=== PATIENT | female | born 1980 | race Caucasian/White ===

== ENCOUNTER 2018-11-26 05:19 | Inpatient (IN) ==
--- NOTE | 2018-11-24 16:08 | PAT Medication Instructions ---
Medication Instructions Date of Service November 24, 2018 Home Medications PNV cmb#95-ferrous fumarate-FA [] 1 tab PO HS acetaminophen-caffeine [Excedrin Tension Headache] 1 tab PO Q6H PRN cetirizine 10 mg PO DAILY PRN dicyclomine 10 mg PO Q6H PRN duloxetine 20 mg PO HS meclizine 25 mg PO TID PRN omega 0-ikf-roo-fish oil [Fish Oil] 1 cap PO HS omeprazole 20 mg PO QAM ondansetron HCl [Zofran] 4 mg PO Q6H PRN sennosides-docusate sodium [Stool Softener-Laxative] 2 tab PO HS simethicone 125 mg PO BID PRN sucralfate 1 g PO BID ASK your surgeon for instructions acetaminophen-caffeine [Excedrin Tension Headache] 1 tab PO Q6H PRN STOP taking 2 weeks before surgery (or as soon as possible if surgery is within 2 weeks) omega 9-oqh-xsz-fish oil [Fish Oil] 1 cap PO HS DO NOT take the morning of surgery cetirizine 10 mg PO DAILY PRN dicyclomine 10 mg PO Q6H PRN simethicone 125 mg PO BID PRN sucralfate 1 g PO BID Take morning of surgery With a small sip of water, OTHERWISE NOTHING TO EAT OR DRINK AFTER MIDNIGHT: meclizine 25 mg PO TID PRN (if needed) omeprazole 20 mg PO QAM ondansetron HCl [Zofran] 4 mg PO Q6H PRN (if needed) Take evening before surgery PNV cmb#95-ferrous fumarate-FA [] 1 tab PO HS cetirizine 10 mg PO DAILY PRN (if needed) dicyclomine 10 mg PO Q6H PRN (if needed) duloxetine 20 mg PO HS meclizine 25 mg PO TID PRN (if needed) ondansetron HCl [Zofran] 4 mg PO Q6H PRN (if needed) sennosides-docusate sodium [Stool Softener-Laxative] 2 tab PO HS simethicone 125 mg PO BID PRN (if needed) sucralfate 1 g PO BID Other Notes If you have any questions please call us at [phone] or [phone] or [phone] or [phone]
--- NOTE | 2018-11-25 11:13 | Anesthesiology Consultation ---
Date of Service November 25, 2018 Assessment & Plan (1) Encounter for pre-operative examination: Chart Review Chart Review: Acceptable Risk for Surgery and Patient seen in Pre Admission Testing Consults Requested none History Surgery Operation Date: 11/26/18 07:30 Proposed Procedures p Section with Bilateral Tubal Ligation - Kimberley Gutierrez DO Height/Weight Height: 5 ft 7 in Weight: 91.8 kg Allergies Allergy/AdvReac Type Severity Reaction Status Date / Time sumatriptan [From Imitrex] Allergy Intermediate INCREASED Verified 11/25/18 09:12 MIGRAINE zolmitriptan Allergy Intermediate INCREASED Verified 11/25/18 09:12 MIGRAINE Medications Home Medications Medication Instructions Recorded Confirmed Last Taken PNV cmb#95-ferrous fumarate-FA 1 tab PO HS 11/22/18 11/25/18 Unknown [] acetaminophen-caffeine [Excedrin 1 tab PO Q6H PRN 11/22/18 11/25/18 Unknown Tension Headache] cetirizine 10 mg PO DAILY PRN 11/22/18 11/25/18 Unknown dicyclomine 10 mg PO Q6H PRN 11/22/18 11/25/18 Unknown duloxetine 20 mg PO HS 11/22/18 11/25/18 Unknown meclizine 25 mg PO TID PRN 11/22/18 11/25/18 Unknown omega 9-mgi-obh-fish oil [Fish Oil] 1 cap PO HS 11/22/18 11/25/18 Unknown omeprazole 20 mg PO QAM 11/22/18 11/25/18 Unknown ondansetron HCl [Zofran] 4 mg PO Q6H PRN 11/22/18 11/25/18 Unknown sennosides-docusate sodium [Stool 2 tab PO HS 11/22/18 11/25/18 Unknown Softener-Laxative] simethicone 125 mg PO BID PRN 11/22/18 11/25/18 Unknown sucralfate 1 g PO BID 11/22/18 11/25/18 Unknown Past Medical History Medical History Anxiety with depression Biliary dyskinesia GERD (gastroesophageal reflux disease) History of spontaneous History of vertigo IBS (irritable bowel syndrome) WITH DIARRHEA/CONSTIPATION Migraine Pinched nerve LOWER Spondylosis CERVICAL SPINE Temporomandibular joint disorder Past Family History Family History Mother Depression Atrial fibrillation Hypertension Dyslipidemia Grandmother (Maternal) Stroke Grandmother (Paternal) Atrial fibrillation Father Hypertension Renal failure FH: CABG (coronary artery bypass surgery) Dyslipidemia Grandfather (Paternal) Hypertension Prostate cancer FH: CABG (coronary artery bypass surgery) Dyslipidemia Sister Thyroid disease Other Myocardial infarction Past Surgical History Surgical History History of anesthesia reaction COUGHING/CHOKING AFTER EMBRYO RETRIEVAL AND WAS TOLD "METABOLISE ANESTHESIA QUICKLY" WITH LAST (USED EPIDURAL LINE) History of esophagogastroduodenoscopy (EGD) History of surgery EMBRYO RETRIEVAL S/P section X 1 S/P cholecystectomy S/P wisdom tooth extraction Social History Smoking Status: Former smoker tobacco type: cigarettes Do You Dip or Chew Tobacco: No Smoking End Date: 2009 Hx Alcohol Use: No Hx Substance Use: No substance use type: does not use Physical Exam Vital Signs Last Vital Signs Temp 36.7 C 11/25/18 10:46 Pulse 98 H 11/25/18 10:46 Resp 18 11/25/18 10:46 BP 111/69 11/25/18 10:46 Pulse Ox 97 11/25/18 10:46
--- NOTE | 2018-11-25 17:27 | History & Physical Report ---
Date of Service November 25, 2018 Assessment & Plan (1) : Plan for repeat section with bilateral tubal ligation with Filshie clips and possible right ovarian cystectomy. We have reviewed informed consent, risks benefits and alternatives to surgery. Including risk of bleeding , scarring, infection, damage to surrounding tissue including bowel, bladder, uterus, ovaries, fallopian tubes, blood supply. We discussed risk of delayed diagnosis of an injury. Discussed risk of after tubal ligation of 2-3 per thousand. Discussed that we will try to remove as much of the ovarian cyst as possible, understanding that vascular supply during is increased to the pelvic organs and will want to avoid bleeding as much as possible. She is agreeable to proceed. History of Present Illness Chief Complaint: repeat section Primary Care Provider: Kristen Hameed, DO 38yo @ 37 05/30 with h/o section x 1, desire for repeat. Also desire for tubal sterilization. Has right ovarian cyst, desires cystectomy if possible. complicated by advanced maternal age, history of se ction x1, ovarian cyst, resulting from IVF. Allergies Allergy/AdvReac Type Severity Reaction Status Date / Time sumatriptan [From Imitrex] Allergy Intermediate INCREASED Verified 11/25/18 09:12 MIGRAINE zolmitriptan Allergy Intermediate INCREASED Verified 11/25/18 09:12 MIGRAINE Home Medications Home Medications Medication Instructions Recorded Confirmed Type PNV cmb#95-ferrous fumarate-FA 1 tab PO HS 11/22/18 11/25/18 History [] acetaminophen-caffeine [Excedrin 1 tab PO Q6H PRN 11/22/18 11/25/18 History Tension Headache] cetirizine 10 mg PO DAILY PRN 11/22/18 11/25/18 History dicyclomine 10 mg PO Q6H PRN 11/22/18 11/25/18 History duloxetine 20 mg PO HS 11/22/18 11/25/18 History meclizine 25 mg PO TID PRN 11/22/18 11/25/18 History omega 3-dsg-pbq-fish oil [Fish Oil] 1 cap PO HS 11/22/18 11/25/18 History omeprazole 20 mg PO QAM 11/22/18 11/25/18 History ondansetron HCl [Zofran] 4 mg PO Q6H PRN 11/22/18 11/25/18 History sennosides-docusate sodium [Stool 2 tab PO HS 11/22/18 11/25/18 History Softener-Laxative] simethicone 125 mg PO BID PRN 11/22/18 11/25/18 History sucralfate 1 g PO BID 11/22/18 11/25/18 History Patient History Medical History Anxiety with depression Biliary dyskinesia GERD (gastroesophageal reflux disease) History of spontaneous History of vertigo IBS (irritable bowel syndrome) WITH DIARRHEA/CONSTIPATION Migraine Pinched nerve LOWER Spondylosis CERVICAL SPINE Temporomandibular joint disorder Surgical History History of anesthesia reaction COUGHING/CHOKING AFTER EMBRYO RETRIEVAL AND WAS TOLD "METABOLISE ANESTHESIA QUICKLY" WITH LAST (USED EPIDURAL LINE) History of esophagogastroduodenoscopy (EGD) History of surgery EMBRYO RETRIEVAL S/P section X 1 S/P cholecystectomy S/P wisdom tooth extraction Family History Mother Depression Atrial fibrillation Hypertension Dyslipidemia Grandmother (Maternal) Stroke Grandmother (Paternal) Atrial fibrillation Father Hypertension Renal failure FH: CABG (coronary artery bypass surgery) Dyslipidemia Grandfather (Paternal) Hypertension Prostate cancer FH: CABG (coronary artery bypass surgery) Dyslipidemia Sister Thyroid disease Other Myocardial infarction Social History Preferred Language: Tristanian Communication Ability: Effective Hand Loom Weaver Required: No Beliefs That Will Affect Care: None marital status: Current Living Situation: Family Other Information That Helps Us Care for You: No Feels Safe at Home: Yes Safety Concerns: Feels Safe At This Time Smoking Status: Former smoker Tobacco Type: cigarettes ; Do You Dip or Chew Tobacco: No ; Smoking End Date: 2009 ; Second Hand Exposure: Yes (RARE EXPOSURE) ; Tobacco Cessation Education Requested by Patient: No Hx Alcohol Use: No Hx Substance Use: No Review of Systems All systems reviewed & are unremarkable except as noted in HPI & below Physical Exam Constitutional: WD/WN, vitals as above Respiratory: normal respiratory effort, lungs clear to auscultation no respiratory distress Cardiovascular: Rate/Rhythm: regular rate and regular rhythm Gastrointestinal (Abdomen): Inspection/Auscultation: abdomen normal to inspection Percussion/Palpation: abdomen soft; abdomen nontender Gravid. No s/s chorio or abruption. Skin: no rashes, warm and dry Psychiatric: A+Ox3, euthymic affect Results & Data Vital Signs (Past 12 Hours) Vital Signs Temp Pulse Resp BP Pulse Ox 11/25/18 10:46 36.7 C 98 H 18 111/69 97
[2018-11-26] MEDS ORDERED: LACTATED RINGER'S 1,000 ML IV SCH ×2 (05:30→06:23)
[2018-11-26 05:50] LABS: Basophils # (auto) 0.09 K/uL (0-0.2); Basophils % (auto) 0.9 %; Eosinophils # (auto) 0.27 K/uL (0-0.5); Eosinophils % (auto) 2.6 %; Hematocrit (blood only) 37.1 % (37-47); Hemoglobin 12.8 g/dL (12.0-16.0); Immature Granulocytes # (auto) 0.37 K/uL (0.00-0.02); Immature Granulocytes % (auto) 3.5 %; Lymphocytes # (auto) 2.93 K/uL (1.2-3.4); Lymphocytes % (auto) 28.1 %; Mean Corpuscular Hemoglobin 32.4 pg (25-34); Mean Corpuscular Hgb Conc 34.5 g/dL (32-36); Mean Corpuscular Volume 93.9 fL (80-100); Monocytes # (auto) 0.91 K/uL (0.11-0.59); Monocytes % (auto) 8.7 %; Neutrophils # (auto) 5.87 K/uL (1.4-6.5); Neutrophils % (auto) 56.2 %; Platelet Count 272 K/uL (130-400); Red Blood Count 3.95 M/uL (4.2-5.4); White Blood Count 10.44 K/uL (4.8-10.8)
[2018-11-26] MEDS ORDERED: CITRIC ACID/SODIUM CITRATE 15 ML UDC PO SCH (06:00)
[2018-11-26] MEDS ORDERED: CEFAZOLIN 2000MG 2,000 MG/15 ML SYR IV SCH (06:00)
--- NOTE | 2018-11-26 07:22 | History & Physical Bridge Note ---
Date of Service November 26, 2018 History & Physical Bridge Note I have examined the patient, reviewed the History & Physical and in the interval since the performance of the History & Physical I have noted the following changes of clinical significance: no changes noted
[2018-11-26] MEDS ORDERED: OXYTOCIN 10 UNITS/ML VIAL ONE (07:27)
[2018-11-26] MEDS ORDERED: fentaNYL citrate 100 MCG/2 ML VIAL ONE ×2 (07:27→08:53)
[2018-11-26] MEDS ORDERED: ONDANSETRON INJ 2 MG/ML 2 ML VIAL ONE ×2 (07:27→09:54)
[2018-11-26] MEDS ORDERED: MoRPHine SULFATE PF 1 MG/ML 10 ML AMP/VIAL ONE ×2 (07:27→08:54)
[2018-11-26] MEDS ORDERED: MIDAZOLAM HCL 1 MG/ML 2ML VIAL ONE (09:25)
[2018-11-26] MEDS ORDERED: HYDROmorphone INJ 0.5 MG/0.5 ML SYR IV PRN (09:52)
[2018-11-26] MEDS ORDERED: DiphenhydrAMINE HCL 50 MG/ML VIAL IV PRN (09:52)
[2018-11-26] MEDS ORDERED: NALBUPHINE HCL INJ 10 MG/ML AMP IV PRN (09:52)
[2018-11-26] MEDS ORDERED: NALOXONE HCL 1 MG in SODIUM CHLORIDE 0.9% 1000ML 1,000 ML IV PRN (09:52)
[2018-11-26] MEDS ORDERED: ONDANSETRON INJ 2 MG/ML 2 ML VIAL IV PRN (09:52)
[2018-11-26] MEDS ORDERED: LACTATED RINGER'S 500 ML IV PRN (09:52)
[2018-11-26] MEDS ORDERED: ACETAMINOPHEN 1000 MG/100 ML IV IV PRN (09:52)
[2018-11-26] MEDS ORDERED: ePHEDrine sulfate 50 MG/ML AMP IV PRN (09:52)
[2018-11-26] MEDS ORDERED: CEFAZOLIN 3000MG/72.5 ML BAG IV ONE (09:52)
[2018-11-26] MEDS ORDERED: MoRPHine SULFATE PF 1 MG/ML 10 ML AMP/VIAL INT SPINAL ONE (09:52)
[2018-11-26] MEDS ORDERED: NALOXONE HCL 0.08 MG in SYRINGE 1.8 ML IV PRN (09:52)
[2018-11-26] MEDS ORDERED: NALOXONE HCL 0.4 MG/1 ML VIAL/CARP IV PRN (09:52)
[2018-11-26] MEDS ORDERED: ePHEDrine sulfate 50 MG/ML SYR ONE (09:55)
[2018-11-26] MEDS ORDERED: PHENYLEPHRINE 100MCG/ML 5ML SYR ONE (09:55)
[2018-11-26] MEDS ORDERED: PHENYLEPHRINE HCL 10 MG/ML VIAL ONE (09:55)
[2018-11-26] MEDS ORDERED: CEFAZOLIN 1000MG 1,000 MG/7.5 ML SYR IV STA (09:57)
[2018-11-26] MEDS ORDERED: SODIUM CHLORIDE 0.9% 1000ML 1,000 ML IV SCH (10:00)
[2018-11-26] MEDS ORDERED: NO NARCOTICS OR SEDATIVES SCH (10:00)
[2018-11-26] MEDS ORDERED: DC INTRASPINAL MORPHINE SCH (10:00)
--- NOTE | 2018-11-26 10:33 | Operative Report ---
PG Post Operative Report Pre & Post Diagnosis Operation Date: 11/26/18 07:30 Pre-Op Diagnosis: History of Section, Desires sterilization, Right ovarian cyst Post-Op Diagnosis: History of Section, Desires sterilization, Right ovarian cyst living female child at 0930 Procedure Operation Date: 11/26/18 07:30 Repeat low transverse section with bilateral tubal sterilization with Filshie clips, right ovarian cystectomy, collection of cord blood for public banking Surgeon Kimberley Gutierrez DO Cable Armorer Eladio Horner DO PGY1 Estimated Blood Loss 700 Findings Consistent with Post-Op Diagnosis Normal appearing uterus, tubes. Left ovary normal. Right ovary with approx 5cm cyst, straw-colored fluid. Viable female 10/01. Weight 7#8oz. Specimens Placenta, cord blood, right ovarian cyst wall Drains park, clear yellow Anesthesia Type Spinal Complications none Disposition Accompanied Patient To Recovery: No Disposition: L&D Indications 38yo @ 37 4/7 with h/o section for failure to progress. Desire for sterilization. Right ovarian cyst, symptomatic. Description of Procedure The patient was seen in the preoperative holding area, risks benefits alternatives to surgery reviewed. She elected to proceed with the case. She had previously signed informed consent under no duress in the office. She was given 2 g of Ancef preoperatively. Her case was then delayed just prior to her being wheeled back to the operating room, as another patient on labor and delivery was delivering. Because there was greater than an hour between the Ancef and incision time, she was given another gram of Ancef preoperatively. Spinal anesthesia was administered. She was prepared and draped in the usual sterile fashion in the supine for position with a leftward tilt. Park catheter was placed. Timeout was confirmed. A Pfannenstiel skin incision was made over the prior incision scar with a scalpel and carried through to the underlying layer fascia. The fascia was nicked at midline and this incision was extended bilaterally. The rectus abdominis muscles were midline, and the peritoneum was entered bluntly digitally. This incision was extended bluntly and sharply. The bladder blade was placed. The bladder flap was dissected off the anterior aspect of the uter us with Metzenbaum scissors. Bladder blade was replaced. Using a new scalpel, a low transverse uterine incision was made and extended bilaterally. The membranes were ruptured for thin meconium stained fluid. The was delivered from a cephalic presentation. The head was delivered, nuchal cord was easily reduced x1, and the body followed. The cord was doubly clamped and cut, the baby was handed off to the waiting pediatrics team. A spontaneous cry was heard. The cord segment was retained for cord gases. Cord blood was obtained. Cord blood for donation was then collected per patient request for cord blood cells for public donation. Placenta was then delivered spontaneously intact with three-vessel cord. The uterus was exteriorized and a large simple appearing right ovarian cyst was noted. The uterus was cleared of all clots and debris. Hysterotomy incision was reapproximated using 0 Vicryl in a running locked stitch. Posterior uterus was inspected and found to be normal. The tubal sterilization was performed using Filshie clips on bilateral fallopian tubes. The ovarian cyst was then approached. Bovie cautery was used to attempt to shell out the cyst, however it popped during this attempt. All fluid was suctioned off the field. The cyst was transected from the ovary using Bovie cautery, and the cyst wall was grasped with an Allis clamp and gently dissected from the remaining ovary. Bovie cautery was used to obtain excellent hemostasis. The remaining ovarian tissue was reapproximated using 3-0 Vicryl in a running locked stitch. Again, hemostasis was observed. The attention was then returned to the uterus, where a second layer of 0 Vicryl was used 3 to imbricate the incision. The uterus was then returned to the abdomen, excellent hemostasis was observed. The fascial incision was reapproximated using 0 Vicryl in a running stitch. The subcutaneous tissue was irrigated and reapproximated using a single running stitch of 2-0 plain gut. The skin was reapproximated using 4-0 Vicryl in a running subcuticular stitch. Patient was taken to her labor and delivery room to recover in stable and good condition. She tolerated the procedure well. I attest to the content of the Intraoperative Record and any orders documented therein. Any exceptions are noted below.
[2018-11-26 10:38] LABS: Base Excess Cord Venous Blood -0.3 mEq/L (-7.7-1.9); Cord Venous Blood HCO3 24 mmol/L (18.4-26.8); Cord Venous Blood PCO2 40 mmHg (30.4-57.2); Cord Venous Blood PO2 23 mmHg (14.1-43.3); Cord Venous Blood pH 7.41 (7.20-7.44)
[2018-11-26] MEDS ORDERED: PROMETHAZINE HCL INJ 25 MG/ML 1 ML VIAL ONE (10:39)
[2018-11-26 10:42] LABS: CO2 Cord Arterial Blood 66 mmHg (39.1-73.5); HCO3 Cord Arterial Blood 24 mmol/L (19.7-28.5); pH Cord Arterial Blood 7.18 (7.1-7.38)
[2018-11-26 10:43] LABS: Oxygen Sat Cord Arterial Blood < 60.0 % (<60); PO2 Cord Arterial Blood < 10.0 % (4.1-31.7)
[2018-11-26] MEDS ORDERED: BENZOCAINE 20% AER SPR 82.5 GM CAN EXT PRN (11:06)
[2018-11-26] MEDS ORDERED: DIPHTHERIA/TETANUS/PERTUSSIS 0.5 ML SYR/VIAL IM ONE (11:06)
[2018-11-26] MEDS ORDERED: MAGNESIUM HYDROXIDE SUSP 30 ML UDC PO PRN (11:06)
[2018-11-26] MEDS ORDERED: SUPERCREAM 0.870% 15 GM JAR EXT PRN (11:06)
[2018-11-26] MEDS ORDERED: HYDROCORTISONE ACETATE 25 MG SUPP PR PRN (11:06)
[2018-11-26] MEDS: KETOROLAC 30 MG/ML VIAL IV PRN ×2 (11:21→19:30)
[2018-11-26] MEDS: OXYTOCIN 30 UNITS in LACTATED RINGER'S 1,000 ML IV SCH ×2 (11:45→20:31)
--- NOTE | 2018-11-26 11:46 | Anesthesiology Progress Note ---
Date of Service November 26, 2018 Anesthesia Post Procedure Vital Signs Vital Signs: Temp Pulse Resp BP Pulse Ox 11/26/18 11:44 83 100 11/26/18 11:39 90 100 11/26/18 11:35 88 130/72 11/26/18 11:34 85 100 11/26/18 11:29 82 100 11/26/18 11:25 81 117/74 11/26/18 11:24 77 100 11/26/18 11:19 83 100 11/26/18 11:15 81 125/78 11/26/18 11:14 81 99 11/26/18 11:09 83 100 11/26/18 11:05 76 115/72 11/26/18 11:03 78 98 11/26/18 10:58 79 100 11/26/18 10:56 80 126/72 11/26/18 10:53 80 100 11/26/18 10:48 76 100 11/26/18 10:45 73 116/66 11/26/18 10:43 85 100 11/26/18 10:38 85 100 11/26/18 10:37 84 114/76 11/26/18 10:35 81 115/74 11/26/18 10:33 78 100 11/26/18 05:41 36.5 C 65 18 127/74 11/26/18 05:27 36.4 C L 65 18 127/74 Transfer of Care Handoff Completed per policy Notes Mental Status: alert / awake / arousable and participated in evaluation Nausea / Vomiting: adequately controlled Pain: adequately controlled Airway Patency, RR, SpO2: stable & adequate BP & HR: stable & adequate Hydration State: stable & adequate Neuraxial Anesthesia: was administered and sensory block is resolving Anesthetic Complications: no major complications apparent and Pt Satisfied with anesthetic care
[2018-11-26] MEDS: SIMETHICONE 80 MG CHEW PO SCH ×3 (14:17→20:34)
[2018-11-26] MEDS: DOCUSATE SODIUM 100 MG CAP PO SCH (20:32)
[2018-11-26] MEDS: DULOXETINE HCL 20 MG CAP PO SCH (20:32)
[2018-11-27] MEDS: KETOROLAC 30 MG/ML VIAL IV PRN (03:02)
[2018-11-27] MEDS: SUCRALFATE 1 GM TAB PO SCH ×2 (03:03→14:33)
[2018-11-27] MEDS ORDERED: DiphenhydrAMINE HCL 50 MG/ML VIAL IV PRN (03:53)
[2018-11-27] MEDS ORDERED: PROMETHAZINE HCL 25 MG in SODIUM CHLORIDE 0.9% 50 ML IV PRN (03:53)
[2018-11-27] MEDS ORDERED: KETOROLAC 30 MG/ML VIAL IV PRN (03:53)
[2018-11-27] MEDS ORDERED: ONDANSETRON INJ 2 MG/ML 2 ML VIAL IV PRN (03:53)
[2018-11-27] MEDS ORDERED: ZOLPIDEM TARTRATE 5 MG TAB PO PRN (03:53)
[2018-11-27] MEDS ORDERED: LACTATED RINGER'S 250 ML IV ONE (04:25)
[2018-11-27 06:35] LABS: Basophils # (auto) 0.05 K/uL (0-0.2); Basophils % (auto) 0.3 %; Eosinophils # (auto) 0.14 K/uL (0-0.5); Hematocrit (blood only) 29.2 % (37-47); Immature Granulocytes # (auto) 0.23 K/uL (0.00-0.02); Immature Granulocytes % (auto) 1.6 %; Lymphocytes # (auto) 2.47 K/uL (1.2-3.4); Mean Corpuscular Hemoglobin 31.3 pg (25-34); Mean Corpuscular Hgb Conc 34.2 g/dL (32-36); Mean Corpuscular Volume 91.5 fL (80-100); Mean Platelet Volume 10.9 fL (7.4-10.4); Monocytes # (auto) 1.57 K/uL (0.11-0.59); Monocytes % (auto) 10.8 %; Neutrophils # (auto) 10.07 K/uL (1.4-6.5); Neutrophils % (auto) 69.3 %; Platelet Count 219 K/uL (130-400); RDW Coefficient of Variation 13.4 % (11.5-14.5); Red Blood Count 3.19 M/uL (4.2-5.4); White Blood Count 14.53 K/uL (4.8-10.8)
--- NOTE | 2018-11-27 06:37 | Obstetrical Progress Note ---
Date of Service November 27, 2018 Assessment & Plan (1) History of delivery: POD#1 doing well. Routine postop care. Subjective Ambulation: ambulating normally Voiding: no voiding problems Diet Tolerance:: regular diet Lochia:: Moderate Review of Systems All systems reviewed & are unremarkable except as noted in HPI & below Physical Exam Incision CDI Constitutional WD/WN, vitals as above no acute distress Respiratory normal respiratory effort Cardiovascular Rate/Rhythm: regular rate and regular rhythm Gastrointestinal (Abdomen) Inspection/Auscultation: abdomen normal to inspection; abdomen not distended Percussion/Palpation: abdomen soft Genitourinary OB Exam Abdomen: + fundal height Fundus: + firm; not tender Results & Data Vital Signs (Past 12 Hours) Vital Signs Temp Pulse Pulse Resp BP BP Pulse Ox 11/27/18 04:40 36.7 C 65 18 106/67 11/27/18 04:15 18 100 11/27/18 03:10 18 100 11/27/18 02:15 18 100 11/27/18 01:50 18 95 11/27/18 00:37 18 95 11/26/18 23:35 36.7 C 60 18 103/65 98 11/26/18 22:05 18 99 11/26/18 21:00 18 99 11/26/18 20:00 18 98 11/26/18 19:25 36.9 C 73 18 112/68 98 11/26/18 19:00 20 98
[2018-11-27] MEDS: PRENATAL VITAMIN 1 TAB PO SCH (08:42)
[2018-11-27] MEDS: SIMETHICONE 80 MG CHEW PO SCH ×4 (08:42→20:07)
[2018-11-27] MEDS: DOCUSATE SODIUM 100 MG CAP PO SCH ×2 (08:42→20:06)
[2018-11-27] MEDS: OXYCODONE/ACETAMINOPHEN 5mg/325mg TAB PO PRN ×4 (08:44→21:06)
[2018-11-27] MEDS: IBUPROFEN 600 MG TAB PO PRN ×4 (08:44→21:07)
[2018-11-27] MEDS ORDERED: bisacodyL 5 MG TABEC PO SCH (20:00)
[2018-11-27] MEDS: DULOXETINE HCL 20 MG CAP PO SCH (20:06)
[2018-11-28] MEDS: SUCRALFATE 1 GM TAB PO SCH (03:22)
[2018-11-28] MEDS: IBUPROFEN 600 MG TAB PO PRN ×3 (05:06→12:43)
[2018-11-28] MEDS: OXYCODONE/ACETAMINOPHEN 5mg/325mg TAB PO PRN ×3 (05:06→12:43)
[2018-11-28 06:38] LABS: Hematocrit (blood only) 32.2 % (37-47); Hemoglobin 10.9 g/dL (12.0-16.0)
--- NOTE | 2018-11-28 08:43 | Obstetrical Progress Note ---
Date of Service November 28, 2018 Assessment & Plan (1) delivery delivered: Patient doing well. Plan d/c today. INstructions given. F/u in 6 weeks. Subjective Ambulation: ambulating normally Voiding: no voiding problems Passing Gas:: Yes Diet Tolerance:: regular diet Lochia:: Small Feeding Type:: breast feeding Physical Exam Constitutional WD/WN, vitals as above Gastrointestinal (Abdomen) soft, nt, nd fundus firm at u incision c/d/i Psychiatric A+Ox3, euthymic affect Results & Data Vital Signs (Past 12 Hours) Vital Signs Temp Pulse Resp BP Pulse Ox 11/28/18 00:00 36.8 C 69 16 123/74 95
[2018-11-28] MEDS: SIMETHICONE 80 MG CHEW PO SCH (08:45)
[2018-11-28] MEDS: DOCUSATE SODIUM 100 MG CAP PO SCH (08:45)
[2018-11-28] MEDS: PRENATAL VITAMIN 1 TAB PO SCH (08:45)
[2018-11-28 09:43] VITALS: BP 117/75; TEMP 98.4; O2SAT 97
[2018-11-28] MEDS ORDERED: bisacodyL 10 MG SUPP PR PRN (10:30)
[2018-11-28 10:41] VITALS: PULSE 73
--- NOTE | 2018-11-29 08:54 | Discharge Summary ---
Date of Service November 29, 2018 Admission HPI Per Admitting Provider 38yo @ 37 05/30 with h/o section x 1, desire for repeat. Also desire for tubal sterilization. Has right ovarian cyst, desires cystectomy if possible. complicated by advanced maternal age, history of section x1, ovarian cyst, resulting from IVF. Discharge Data Consultations 11/26/18 05:20 Consult Anesthesiology Stat Procedures Performed Operation Date: 11/26/18 07:30 Actual Procedures p Section in LD for living female child 0930, bilateral tubal ligation, removal of right ovarian cyst - Kimberley Gutierrez, Hospital Course (1) : Patient was admitted following scheduled repeat section, tubal sterilization, and removal of right ovarian cyst. She had normal postop/ recovery course and was discharged POD#2 to home. Followup in office in 6w. Please see patient chart for further details.
== END 2018-11-28 14:50 | disposition home or self-care (01) | DRG 785 ==
LOC: 4S1 05:19 → EDSTATUS 07:30 → 4S2 13:46